=== PATIENT | female | born 1990 | race Caucasian/White ===

== ENCOUNTER 2017-04-13 13:26 | Emergency (ER) | payer MEDICAID, OTHER ==
[2017-04-13 13:31] VITALS: BP 152/101
--- NOTE | 2017-04-13 14:27 | ER Document Report ---
HPI - HPI Patient complains to provider of: skin sores Pain Level: 3 Context: Patient is a 26 old female presents emergency Department complaining of sores on her wrists and ankles. Patient states that she's had issues with her skin her entire life. It's usually been on her face and her wrists. She states that these areas have gotten worse and she started using liquid bandage over top. Concerned that they are infected. She denies any fevers, chills. She is not an IV drug user. denies any follow up with dermatology follow in the past since she didnt think it was ever a problem she does admit that she picks at them constantly - CARDIOVASCULAR Cardiovascular: DENIES: Chest pain - REPRODUCTIVE Reproductive: DENIES: : Past Medical History - Social History Smoking Status: Never Smoker Chew tobacco use (# tins/day): No Frequency of alcohol use: None Drug Abuse: None Family History: Reviewed & Not Pertinent - Past Medical History Cardiac Medical History: Denies: Hx Coronary Artery Disease, Hx Heart Attack, Hx Hypertension Pulmonary Medical History: Reports: Hx Asthma - inhalers Denies: Hx Bronchitis, Hx COPD, Hx Pneumonia Neurological Medical History: Denies: Hx Cerebrovascular Accident, Hx Seizures Renal/ Medical History: Denies: Hx Peritoneal Dialysis Musculoskeltal Medical History: Denies Hx Arthritis Psychiatric Medical History: Reports: Hx Attention Deficit Hyperactivity Disorder Past Surgical History: Reports: Hx Abdominal Surgery - hernia repair - Immunizations Hx Diphtheria, Pertussis, Tetanus Vaccination: No - allergic to tdap Vertical Provider Document - CONSTITUTIONAL Agree With Documented VS: Yes Exam Limitations: No Limitations General Appearance: WD/WN, No Apparent Distress - INFECTION CONTROL TRAVEL OUTSIDE OF THE [place] IN LAST 30 DAYS: No - RESPIRATORY O2 Sat by Pulse Oximetry: 99 - NEURO Level of Consciousness: Awake, Alert, Appropriate Motor/Sensory: No Motor Deficit, No Sensory Deficit - DERM Integumentary: Warm, Dry, No Rash Adult Front & Back Diagram: 1 - chronic abrasions with evidence of ulceration 2 - chronic abrasions with evidence of ulceration 3 - chronic abrasions with evidence of ulceration 4 - chronic abrasions with evidence of ulceration Notes: all measuring less then .5 cm Course - Re-evaluation Re-evalutation: 04/13/17 19:13 Discussed with patient to stop using the liquid bandages and to stop picking at her skin. Keep the areas clean and dry with regular soap and water and to follow-up with her primary care for referral to dermatology. - Vital Signs Vital signs: Temp Pulse Resp BP Pulse Ox 98.8 F 112 H 152/101 H 99 04/13/17 13:29 04/13/17 13:29 04/13/17 13:29 04/13/17 13:29 Discharge - Discharge Clinical Impression: Skin abnormality Condition: Good Disposition: HOME, SELF-CARE Additional Instructions: Please follow-up with your primary care physician for referral to dermatology. Please keep your wounds clean and dry. You can use bacitracin or Neosporin as needed. NORMAL EXAM AND WORKUP: At this time, your examination and workup show no significant abnormality. No significant abnormal physical findings were noted. Although your examination and all studies that were ordered showed no significant abnormal finding, there are no examinations and no studies that are 100% accurate. There is always the possibility that some abnormality could exist and not be detected with physical examination or within the limits and capabilities of laboratory and other studies. You should return or follow up as you were instructed on your visit today for further evaluation if your symptoms do not resolve. Forms: Elevated Blood Pressure
== END 2017-04-13 14:30 | disposition home or self-care (01) ==
LOC: ER 13:26
DX: L98.9 Disorder of the skin and subcutaneous tissue, unspecified (principal)
CPT/HCPCS: 99283